=== PATIENT | female | born 2000 | race Caucasian/White ===

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

== ENCOUNTER → 2021-12-30 | Outpatient (CLI) | payer OTHER ==
[~2021-12-30] MED LIST: BENA12.56 PO; BENA25CA4 PO; PRED10TA2 PO
== END ==
LOC: M PLAIMG 08:53
PROVIDERS: ATTEND Nurse Practitioner Family
DX: M40.209 Unspecified kyphosis, site unspecified (principal); D18.09 Hemangioma of other sites; M51.24 Other intervertebral disc displacement, thoracic region

== ENCOUNTER → 2022-06-03 | Outpatient (CLI) | payer OTHER | LOC: M WHC 10:24 | PROVIDERS: ATTEND Nurse Practitioner Family | DX: M54.2 Cervicalgia (principal); M54.50 Low back pain, unspecified; M40.209 Unspecified kyphosis, site unspecified ==

== ENCOUNTER → 2022-06-06 | Outpatient (CLI) | payer OTHER | LOC: M RAD 10:22 | PROVIDERS: ATTEND Nurse Practitioner Family | DX: M51.26 Other intervertebral disc displacement, lumbar region (principal); M54.2 Cervicalgia ==